=== PATIENT | female | born 1965 | race Hispanic/Latino ===

== ENCOUNTER 2018-12-22 15:54 | Emergency (ER) | payer OTHER ==
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
[2018-12-22 16:46] VITALS: BP 146/80
--- NOTE | 2018-12-22 17:38 | XRay Report ---
PROCEDURE: XR RIBS UNI W PA CHEST 3+V LT TECHNIQUE: 3 views obtained of the left rib cage HISTORY: pain s/p fall COMPARISONS: No priors FINDINGS: Fracture of the left eighth and ninth ribs posterolaterally. No evidence of pneumothorax. Old healed fracture of the left sixth rib. IMPRESSION: Fractures of the left eighth and ninth ribs posterolaterally. Old healed fracture of the left sixth rib. . This document is electronically signed by Fermin Clark MD., December 22 2018 05:36:38 PM ET
--- NOTE | 2018-12-22 17:45 | XRay Report ---
PROCEDURE: XR SPINE THORACIC 3V TECHNIQUE: 4 views obtained HISTORY: pain s/p fall COMPARISONS: No priors FINDINGS: No radiographic evidence of acute thoracic spine fracture. Degenerative changes of the thoracic spine with anterior osteophytes. No compression deformity. Left rib fractures, reported separately. IMPRESSION: No radiographic evidence of acute thoracic spine fracture. Degenerative changes of the thoracic spine.. This document is electronically signed by Fermin Clark MD., December 22 2018 05:42:42 PM ET
[2018-12-22] MEDS ORDERED: PERCOCET 5/325 PO ONE (19:22)
[2018-12-22] MEDS ORDERED: PERCOCET 5/325 ONE (19:22)
[2018-12-22] MEDS ORDERED: IBUPROFEN PO ONE ×2 (19:22)
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
== END 2018-12-22 20:07 | disposition home or self-care (01) ==
LOC: ED 15:54
DX: S22.42XA Multiple fractures of ribs, left side, initial encounter for closed fracture (principal); I10 Essential (primary) hypertension; Z79.1 Long term (current) use of non-steroidal anti-inflammatories (NSAID); Z88.5 Allergy status to narcotic agent; Z90.710 Acquired absence of both cervix and uterus; V29.88XA Motorcycle rider (driver) (passenger) injured in other specified transport accidents, initial encounter; Y93.89 Activity, other specified; Y92.488 Other paved roadways as the place of occurrence of the external cause; Y99.8 Other external cause status
CPT/HCPCS: 72072; 99283